=== PATIENT | female | born 1955 | race Caucasian/White ===

== ENCOUNTER 2016-12-21 12:01 | Emergency (ER) | payer OTHER ==
[~2016-12-21 12:01] MED LIST: HYDR-3479 PO; LORA-303 PO; ONDANSETRON8ODT SL/PO; PRE20 PO
--- NOTE | 2016-12-21 12:03 | ED.REPORT ---
HPI-Trauma Minor / Fall Date of Service Dec 21, 2016 ED Provider: History of Present Illness: walking down step at home, tripped over cat. right arm pain. had 5 of morphine with drop in blood pressure in ambulance. lives with . ate around 10 am. LARS is primary care in [place]. normally healthy. 3 steps from outside into home. 2 story house. bedroom on the first floor. took an ativan right before fall. 10/16 left hand dominant injury happened at home inside. Nursing Notes Stated Complaint: arm pain Nursing Notes Reviewed: Yes Allergies: Coded Allergies: No Known Allergies (Unverified Allergy, 07/13/13) Scheduled Lorazepam-Expunged Drug, Do Not Renew! (Lorazepam-Expunged Drug, Do Not Renew!) 1 Mg Tab 1.5 MG PO HS PredniSONE-Expunged Drug, Do Not Renew! (PredniSONE-Expunged Drug, Do Not Renew! ) 20 Mg Tab 40 MG PO DAILY TAKE WITH FOOD Scheduled PRN Hydrocod/APAP-Expunged, Do Not Renew! (VICODIN 5/300-Expunged Drug, Do Not Renew ) 1 Each Tablet 1 TAB PO Q4H PRN PRN For Pain For mild-moderate pain. Ondansetron ODT 8 MGTab (Zofran ODT 8 MG Tab) 8 Mg Tab.rapdis 4 MG SL/PO Q4 PRN PRN For Nausea 8 MG General Time Seen by MD: 12:03 Chief Complaint Fall Hx Obtained From: Patient Onset Occurred: 1 - 4 hours ago Past Medical History Past Medical History Denies: Asthma Past Surgical History shoulder, hernia, crohn's Smoking History Former Smoker (quit in her early 20"s) Social History Alcohol Use: 1-3 per week Drug Use: Denies drug use Occupation lives with work at [employer] in [place] food [employer] 12/21/2016 Ambulatory Status Independent Review of Systems Basic Review of Systems Cardiovascular: No chest pain, No dyspnea on exertion, No orthopnea, No parox noct dyspnea, No palpitations Endocrine: No cold intolerance, No heat intolerance, No weight gain, No weight loss Psychiatric: Normal thought content Physical Exam Initial Vital Signs Vital Signs (First) Date Time Temp Pulse Resp B/P Pulse Ox O2 Delivery O2 Flow Rate FiO2 12/21/16 12:13 36.8 60 18 139/62 100 Room Air Initial VS: Reviewed, Vital signs normal Head / Eyes: Atraumatic, Normocephalic, PERRL ENT: Mucous membranes moist, Conjunctiva normal, No scleral icterus Respiratory: Breath sounds normal, Clear to auscultation, No respiratory distress Cardiovascular: Regular rate & rhythm, Heart sounds normal, Intact distal pulses Abdomen / GI: Soft, Non-tender, No guarding, No rebound, No distention Back: No CVA tenderness Lymphatic: No lymphadenopathy Extremities: Vascular intact, Neuro intact, No swelling, No tenderness Skin: Warm, Dry, No cyanosis Neurologic: Alert, Oriented, Nonfocal Psychiatric: Mood/affect normal, Behavior normal, Normal thought content General/Constitutional: Awake, Alert, No acute distress, Well appearing, Well developed, Well hydrated, Well nourished, Cooperative, Not toxic appearing Neck: Atraumatic, Supple, No meningismus, Full range of motion ENT: Atraumatic, Airway patent, Mucous membranes moist, Pharynx NL Respiratory / Chest: Atraumatic, Breath sounds NL, Breath sounds = bilat, No respiratory distress, No rales, No rhonchi Cardiovascular: Heart rate NL, Regular rhythm, Heart sounds NL right arm held in position of comfort. sensation intact distally in fingers. Movement intact in fingers. cap refill less than 2 sec Interpretation & Diagnostics Lab Results Interpretation Result Diagram: 12/21/16 1543 Test 12/21/16 15:43 White Blood Count 10.4th/mm3 (3.8-10.1) Red Blood Count 4.50mil/mm3 (3.90-5.20) Hemoglobin 13.9g/dL (12.0-15.6) Hematocrit 42.2% (35.0-46.0) Mean Corpuscular Volume 93.8fL (81-100) Mean Corpuscular Hemoglobin 30.9pg (27.0-35.0) Mean Corpuscular Hemoglobin Concent 32.9% (32.0-37.0) Red Cell Distribution Width 13.7% (12.3-15.4) Platelet Count 168bil/L (150-400) Neutrophils (%) (Auto) 83.5% (40-74) Lymphocytes (%) (Auto) 12.6% (14-46) Monocytes (%) (Auto) 3.2% (4-12) Eosinophils (%) (Auto) 0.3% (0-5) Basophils (%) (Auto) 0.2% (0-3) ECG Interpretation ECG Interpretation: sinus rhythm with a rate of 66 Time: 14:18 Interpreted by: ED physician X-Ray Interpretation Xray Interpretation: PROCEDURE: X-RAY RIGHT ELBOW COMPLETE, MINIMUM THREE VIEWS ([id number]) INDICATIONS: fall pain TECHNIQUE: 3 views of the elbow were acquired. COMPARISON: None. FINDINGS: Bones: There is a mildly displaced fracture of what appears to be the lateral humeral condyle. In addition, ill defined lucency is noted along the opposite condyle. However, both condyles are poor evaluated secondary to significant osseous overlap from suboptimal patient positioning. Soft tissues: No elbow joint effusion. No suspicious soft tissue calcifications. IMPRESSION: Mildly displaced humeral condylar fracture, suspected to be lateral. Due to rotation and osseous overlap secondary to patient's inablility for positioning, lateral and medial aspects are poorly delineated. In addition, there is a poorly defined area of second lucency along the adjacent condyle suspicious for fracture but poorly visualized. CT is recommended for additional evaluation. Dictated by: Henna Gaitan M.D. on 12/21/2016 at 13:21 Approved by: Henna Gaitan M.D. on 12/21/2016 at 13:30 PROCEDURE: X-RAY PELVIS W/LAT HIP (RT) ([id number]) INDICATIONS: fell pain TECHNIQUE: AP pelvis with lateral view(s) of the right hip(s). COMPARISON: None. FINDINGS: Bones: No fractures or dislocations. Pelvic ring appears intact. No suspicious bony lesions. Soft tissues: The visualized bowel gas pattern is normal. No suspicious soft tissue calcifications. IMPRESSION: No acute radiographic findings. If pain persists, followup imaging in 5-7 days is recommended to exclude occult fracture. Dictated by: Sarah Stevenson M.D. on 12/21/2016 at 15:53 Approved by: Sarah Stevenson M.D. on 12/21/2016 at 15:54 Re-Eval/Medical Decision Med Decision/Clinical Course 61 year old female fell in her home today after tripping on the family cat landing on her right arm. Patient with tenderness to entire arm. X-ray indicates a distal humerus fracture. Discussed with Dr. Bunch, he suggests patient call Dr. Cabral for follow up later this week. Provided info to patient. No sign of compartment syndrome at this time. Discharge & Departure Impression: Primary Impression: Fracture of distal end of humerus Encounter type: initial encounter Fracture type: closed Fracture alignment : nondisplaced Laterality: right Additional Impression: Hip sprain Disposition: Home Patient Instructions: Arm Fracture in Adults (ED), High Fiber Diet (ED), Splint Care (ED) Additional Instructions: You broke your arm in the fall today. You have been splinted and placed in a sling. Use percocet 10/325 1 every 6 hours as needed for severe unrelenting pain. Continue with ice 15 minutes on and 15 minutes off. Please call Dr. Cabral' s office for follow up. Dr. Bunch is legislative correspondent today and he suggested you call Dr. Cabral and be seen this week. You can purchase a cast protector at any drugstore to keep the cast/splint dry. I am sorry this happened. Your pelvis and hip x- ray is negative for any fracture. You can expect to be stiffer tomorrow. It is going to be important that you continue with gentle movement. Increase fiber in your diet. A list of high fiber foods is provided. Referrals: Gene Cabral DO EDSupervising Provider for APC: Hemant Balderas MD copies to: Gene Cabral Sue ARNP Dec 21, 2016 12:03
[2016-12-21 12:13] VITALS: BP 139/62; PULSE 60; RESP 18; O2SAT 100
[2016-12-21] MEDS ORDERED: fentaNYL-PF 50 mCg/mL 2 mL Inj IVPUSH ONE ×4 (12:20→15:35)
[2016-12-21] MEDS ORDERED: Ondansetron 2 mg/mL 2 mL Inj IVPUSH ONE ×2 (12:20→15:35)
[2016-12-21] MEDS ORDERED: 0.9% Sodium Chloride 1,000 ML IV ONE (12:25)
--- NOTE | 2016-12-21 13:31 | DRSVH ---
PROCEDURE: X-RAY RIGHT ELBOW COMPLETE, MINIMUM THREE VIEWS ([id number]) INDICATIONS: fall pain TECHNIQUE: 3 views of the elbow were acquired. COMPARISON: None. FINDINGS: Bones: There is a mildly displaced fracture of what appears to be the lateral humeral condyle. In add ition, ill defined lucency is noted along the opposite condyle. However, both condyles are poor eval uated secondary to significant osseous overlap from suboptimal patient positioning. Soft tissues: No elbow joint effusion. No suspicious soft tissue calcifications. IMPRESSION: Mildly displaced humeral condylar fracture, suspected to be lateral. Due to rotation an d osseous overlap secondary to patient's inablility for positioning, lateral and medial aspects are p oorly delineated. In addition, there is a poorly defined area of second lucency along the adjacent c ondyle suspicious for fracture but poorly visualized. CT is recommended for additional evaluation. Dictated by: Henna Gaitan M.D. on 12/21/2016 at 13:21 Approved by: Henna Gaitan M.D. on 12/21/2016 at 13:30
[2016-12-21] MEDS ORDERED: oxyCODONE-Acetamin 10-325 mg Tablet PO ONE (13:45)
[2016-12-21 14:00] VITALS: BP 140/59; PULSE 65; O2SAT 100
[2016-12-21 15:46] LABS: BASOPHILS % (AUTO) 0.2 % (0-3); EOSINOPHILS % (AUTO) 0.3 % (0-5); MONOCYTES % (AUTO) 3.2 % (4-12); Mean Corpuscular Hemoglobin 30.9 pg (27.0-35.0); Mean Corpuscular Volume 93.8 fL (81-100); NEUTROPHILS % (AUTO) 83.5 % (40-74); Platelet Count 168 bil/L (150-400)
--- NOTE | 2016-12-21 15:56 | DRSVH ---
PROCEDURE: X-RAY PELVIS W/LAT HIP (RT) ([id number]) INDICATIONS: fell pain TECHNIQUE: AP pelvis with lateral view(s) of the right hip(s). COMPARISON: None. FINDINGS: Bones: No fractures or dislocations. Pelvic ring appears intact. No suspicious bony lesions. Soft tissues: The visualized bowel gas pattern is normal. No suspicious soft tissue calcifications. IMPRESSION: No acute radiographic findings. If pain persists, followup imaging in 5-7 days is recomm ended to exclude occult fracture. Dictated by: Sarah Stevenson M.D. on 12/21/2016 at 15:53 Approved by: Sarah Stevenson M.D. on 12/21/2016 at 15:54
[2016-12-21 16:49] VITALS: BP 140/59; PULSE 65; RESP 18; O2SAT 100
[2016-12-28] MEDS ORDERED: CHOL5000 PO (10:05)
[2016-12-28] MEDS ORDERED: CITA10TA9 PO (10:05)
[2016-12-28] MEDS ORDERED: TURM500C9 PO (10:05)
[2016-12-28] MEDS ORDERED: OXYC1TAB24 PO (10:05)
[2016-12-28] MEDS ORDERED: ONDA-53 PO (10:05)
== END 2016-12-21 16:10 | disposition home or self-care (01) ==
LOC: SED 12:01
DX: S42.494A Other nondisplaced fracture of lower end of right humerus, initial encounter for closed fracture (principal); S73.101A Unspecified sprain of right hip, initial encounter; W10.8XXA Fall (on) (from) other stairs and steps, initial encounter; Y93.01 Activity, walking, marching and hiking; Y92.008 Other place in unspecified non-institutional (private) residence as the place of occurrence of the external cause; Y99.8 Other external cause status; Z87.891 Personal history of nicotine dependence; Z79.52 Long term (current) use of systemic steroids
CPT/HCPCS: 29105; 36415; 73080; 73501; 85025; 93005; 96361; 96374; 96375; 96376; 99285; J2405; J3010; J7030

== ENCOUNTER → 2016-12-30 | Day surgery (SDC) | payer OTHER ==
[2016-12-30] VITALS (13 sets, daily range): BP systolic 98–128; BP diastolic 47–71; PULSE 53–108; RESP 10–18; O2SAT 90–100
[~2016-12-30] VITALS: Ht 160 cm; Wt 62.5 kg
[~2016-12-30] MED LIST changes: +Atropine 0.4 mg/mL Inj IVPUSH PRN; +CHOL5000 PO; +CITA10TA9 PO; +CeFAZolin Inj 2 GM in IV Premix 1 EACH IV ONE; +CeFAZolin Inj 2 gm / 50mL D5W IV ONE; +Dexamethasone 4 mg/mL Inj IVPUSH PRN; +Dexamethasone 4 mg/mL Inj ONE; +EPHEDrine Sulfate 50 mg/mL Inj IVPUSH PRN; +EPHEDrine/NS 5 mg/mL 5 mL Syringe ONE; -HYDR-3479 PO; +HYDROmorphone 0.5 mg/0.5 mL iSecure Syringe ONE; +HYDROmorphone 1 mg/mL Inj ONE; -LORA-303 PO; +Labetalol 5 mg/mL 20 mL Inj IV PRN; +Lactated Ringer's 1,000 ML IV ONE; +Lactated Ringer's 1,000 ML IV SCH; +Lactated Ringer's 500 ML IV PRN; +Lidocaine 1%/Epi 1:100,000 30 mL MDV INFILTRATE ONE; +MetoCLOpramide 5 mg/mL 2 mL Inj IVPUSH PRN; +MetoCLOpramide 5 mg/mL 2 mL Inj ONE; +ONDA-53 PO; -ONDANSETRON8ODT SL/PO; +OXYC1TAB24 PO; +Ondansetron 2 mg/mL 2 mL Inj IVPUSH PRN; +Ondansetron 2 mg/mL 2 mL Inj ONE; -PRE20 PO; +Phenylephrine 10,000 mCg/mL Inj IVPUSH PRN; +Phenylephrine/NS 100 mCg/mL 10 mL Syringe IVPUSH ONE; +Propofol 10,000 mCg/mL 20 mL Inj ONE; +Rocuronium 10 mg/mL 5 mL Inj ONE; +TURM500C9 PO; +fentaNYL-PF 50 mCg/mL 2 mL Inj IVPUSH PRN; +fentaNYL-PF 50 mCg/mL 2 mL Inj ONE; +hydrALAZINE 20 mg/mL Inj IVPUSH PRN; +oxyCODONE-Acetamin 5-325 mg Tablet PO PRN
--- NOTE | 2016-12-30 10:39 | PCM.HPANE ---
Patient Data Date of Service: Dec 30, 2016 Surgeon Admitting Provider: Attending Provider:Gene Cabral DO Primary Care Physician:Chrissy Other Provider:Pippa Prasad Anesthesia Reason for Visit Right Distal Humerus Fracture Ht/WT & BMI Height (Feet): 5 Height (Inches): 3.00 Weight (Kilograms): 62.5 Body Mass Index 24.00 Allergies Coded Allergies: No Known Allergies (Unverified Allergy, Unknown, 12/28/16) Past Anesthesia History Anesthesia History: Denies:: Abnormal Airway, Anesthesia Reactions, Difficult Intubation, Fam Anesthesia Reaction, Fam Malignant Hypertherm, Malignant Hyperthermia Diabetes History Hx Diabetes?: No MRSA MRSA: No Medications Hypertension Medication: No Home Meds Incl Beta Carol: No Reported Medications Cholecalciferol (Vitamin D3) (Vitamin D3)5,000 Unit Capsule5,000 Unit PO DAILY 12/28/16 Turmeric Root Extract (Turmeric)500 Mg [id number] Mg PO DAILY 12/28/16 oxyCODONE-Acetaminophen 5-325 mg 1 Each Tablet1 Tab PO Q6H PRN For Pain Ref 0 12/28/16 Ondansetron 4 Mg Tablet4-8 Mg PO BID PRN For Nausea 12/28/16 Citalopram 10 Mg Tablet5 Mg PO DAILY Ref 0 12/28/16 Discontinued Reported Medications Lorazepam-Expunged Drug, Do Not Renew! 1 Mg Tab1.5 Mg PO HS 07/15/13 Discontinued Scripts Ondansetron ODT 8 MGTab (Zofran ODT 8 MG Tab)8 Mg Tab.rapdis4 Mg SL/PO Q4 PRN For Nausea #20 TAB Ref 0 8 MG Prov:Rabia Montoya MD 07/15/13 Hydrocod/APAP-Expunged, Do Not Renew! (VICODIN 5/300-Expunged Drug, Do Not Renew )1 Each Tablet1 Tab PO Q4H PRN For Pain #30 TAB For mild-moderate pain. Prov:Rabia Montoya MD 07/15/13 PredniSONE-Expunged Drug, Do Not Renew! 20 Mg Tab40 Mg PO DAILY #40 TAB TAKE WITH FOOD Prov:Rabia Montoya MD 07/15/13 History History of ENT Problems?: No HEENT History: Denies:: Abnormal Airway Cataracts Difficult Intubation Dysphagia Glaucoma Hearing Problem Sinus Problem TMJ Denture Type: None Teeth Condition: Within Normal Limits Hx of Heart Problems?: No Cardiovascular History: Denies:: AICD Abdominal Aortic Aneurism Atrial Fibrillation Chest Pain Congestive Heart Failure Coronary Artery Disease Edema Heart Murmur Hypertension Irregular Heartbeat Pacemaker Peripheral Vascular Rheumatic Fever Hx of Respiratory Problem?: No Respiratory History: Denies:: Asthma COPD Emphysema Oxygen Administration Pneumonia (remote hx of- approx 7 years) Tuberculosis Use of C-PAP Machine Use of Inhalers / NEBS Hx Neurologic Problems?: No Neurological History: Denies:: CVA Headaches Multiple Sclerosis Parkinson's Disease Seizures TIA Hx of GI Problems?: Yes Other GI Pertinent History: hx of crohns- has not had flare up since 1995 Hx of Problems?: No Genitourinary History: Denies:: Kidney Stones Urinary Tract Infection Female Hx: Denies:: Currently (hx of tubal ) Endometriosis Pelvic Inflammatory Problems with Breasts? Skin History: Positive for:: History Skin Disorders? ("rashes" around splint) Denies:: Pressure Ulcers Hx Musculoskeletal Problems?: Yes Musculoskeletal History: Positive for:: Musculoskeletal Trauma (fracture right arm current admission problem) Denies:: Back Injury Fibromyalgia Joint Replacement Myasthenia Gravis Osteoarthritis Rheumatoid Arthritis Systemic Lupus Hx of Psycho/Social Problems?: Yes Psycho Social History: Positive for:: Hx Depression Denies:: Anxiety Hx Surgeries?: Yes (hernia, tubal ) Hx Any Other Health Problems?: Yes Other History: Positive for:: Cancer (melanoma right leg, bcc facial) Hospitalization Thyroid Disease (growth on thyroid- being monitored - benign) History Blood Transfusions: Positive for:: Accept Blood Products? Denies:: Blood Transfusions Hx Diabetes: No Hx Alcohol Use: YesAlcoholic Drinks Per Day: 3-4 drinks weeklyHx Substance Use : No Smoking Status: Former Smoker Have You Smoked inLast 12 mo: No Stop/Bang Treated for Sleep Apnea?: No Do You Have a CPAP Machine?: No P-Blood Pressure: treated: No B- Body Mass Index > 35 kg/m2: No A- Age over 50: Yes N- Neck Large Circumference: No G- Gender Male: No CAROL Risk Assessment: Low Risk, <3 Yes Risk Assessment Category Category 1A: Patient has history of documented sleep apnea, and HAS NOT received any narcotic, sedative or anesthesia administration during this stay. Category 1B: Patient has history of documented sleep apnea, and HAS received any narcotic , sedative or anesthesia administration during this stay Category 2: Patient has SUSPECTED Obstructive Sleep Apnea, and HAS received any narcotic , sedative or anesthesia administration during this stay. Category 3: Patient has SUSPECTED Obstructive Sleep Apnea and HAS NOT received narcotic, sedative or anesthesia administration during this stay. Category 4: Outpatient in Procedural Areas with known sleep apnea or who screen positive for High Risk via the STOP/BANG questionnaire. Exam Exam Vital Signs Vital Signs Date Time Temp Pulse Resp B/P Pulse Ox O2 Delivery O2 Flow Rate FiO2 12/30/16 09:11 37.2 53 16 128/71 100 Room Air General Appearance: Alert, Oriented X3, Cooperative HEENT/AIRWAY: MP 1, Neck Movement (Full), Mouth Opening (Wide) Lungs: Clear to Auscultation, Normal Air Movement Heart: Regular Rate/Rhythm, Normal S1, Normal S2 Meds/Labs/Diagnostics Admission Meds Current Medications Lactated Ringer's (Lr) 1,000 ml @ 80 mls/hr [id number] ONCE IV Last administered on 12/30/16 09:32; Start 12/30/16 at 06:00; Stop 12/30/16 at 18:29 Plan Impression Patient chart reviewed, patient interviewed and anesthestic plan with risks, benefits, and alternatives discussed, and informed consent obtained. ASA Physical Status: ASA2 Mod Systemic Disease Anesthetic Plan: GA Bene/Risks/Altern/Consents: Yes HP Complete Prior to Induction: Yes Jai White MD Dec 30, 2016 09:45
[2016-12-30] MEDS: HYDROmorphone 1 mg/mL Inj IVPUSH PRN ×3 (15:09→15:33)
--- NOTE | 2016-12-30 16:02 | PCM.ANEP1 ---
Post Anesthesia PACU Phase 1 Assessment Date of Service: Dec 30, 2016 Vital Signs Vital Signs Date Time Temp Pulse Resp B/P Pulse Ox O2 Delivery O2 Flow Rate FiO2 12/30/16 15:50 71 10 119/48 97 Nasal Cannula 2 12/30/16 15:45 69 13 103/50 100 Nasal Cannula 2 12/30/16 15:35 78 12 99/54 90 Room Air 12/30/16 15:25 36.7 83 14 101/47 96 Room Air 12/30/16 15:15 96 14 99/48 94 Room Air 12/30/16 15:10 96 15 103/53 96 Room Air 12/30/16 15:05 98 15 98/55 96 Room Air 12/30/16 15:00 107 16 102/59 96 Room Air 12/30/16 14:55 36.8 108 18 112/65 100 Simple Mask 8 12/30/16 09:11 37.2 53 16 128/71 100 Room Air Anesthetic Administered: GA Level of Alertness: Awake, talking PAYTON's with Equal Strength: Yes Pain: No Nausea or Vomiting: No CV Function & Hydration Stable: Yes Airway Device: Oxygen Delivery: Room Air Lungs: Normal Air Movement Dermatome Level: Full Sensation PACU Phase 2 Assessment Complications: No Follow up Care: N/A Patient Instructions Provided: N/A Jai White MD Dec 30, 2016 16:02
--- NOTE | 2016-12-31 12:07 | OP ---
[address] [address] OPERATIVE REPORT PATIENT: DUSTY POE : 1955 MR#: [id number] ADMIT: 12/30/2016 JOB ID: [id number] DATE OF SURGERY: 12/31/2016 PREOPERATIVE DIAGNOSIS(ES): Right intra-articular distal humerus fracture. POSTOPERATIVE DIAGNOSIS(ES): Right intra-articular distal humerus fracture. PROCEDURE: Open reduction, internal fixation of right comminuted intra-articular distal humeral fracture. SURGEON: Gene Cabral D.O. HEALTH AND SAFETY COORDINATOR: Nicholas Farrar PA-C The assistance of Nicholas Farrar PA-C was necessary for help with reduction during the procedure as well as for retraction and primary closure at the conclusion of the case. ANESTHESIA: General. BRIEF HISTORY: The patient is a pleasant 61-year-old left-hand dominant female that presented to me several days out after falling directly onto her right elbow. She got her feet caught up between her new kitten and she fell. She immediately had pain and swelling to the elbow, presented to the hospital where she was diagnosed with a distal humerus fracture. She was placed into a splint and followed up in my office for further evaluation and treatment. Upon presentation, the radiographs did demonstrate a distal humerus fracture that was in somewhat of a flexed position. The articular surface did demonstrate that it was intact, but a CT was ordered for further evaluation for preop planning. I discussed with the patient the risks, benefits, alternatives and indications to proceed with open reduction, internal fixation of the right distal humerus fracture. She understood the risks include, but not limited to, neurovascular injury, tendon injury, infection, failure of fixation, stiffness, persistent pain, all of which may require further intervention. The patient had all questions answered. Consent was signed and placed in the chart. In the preoperative suite, I did discuss with the patient and her the possibility of an olecranon osteotomy may need to be performed as further evaluation of the CT did demonstrate although a simple fracture line to the joint, there was also a comminuted segment of the capitellum. They wer ein agreement with the plan and agreed to proceed as planned. PROCEDURE IN DETAIL: The patient was brought to the operative suite and placed supine on the operative table. A surgical time-out was performed. Everyone in the room was in agreement. After appropriate anesthesia was obtained, the patient was placed in the left lateral decubitus position with the body secured with a brown bag. All prominences were well padded. The patient's arm was placed in a forward flexed position on a series of blankets and over a large bump. The right upper extremity was then prepped and draped in a sterile fashion and a sterile tourniquet then applied. The right upper extremity was then exsanguinated and tourniquet inflated to 250 mmHg. A longitudinal incision was made direct posteriorly centered at the fracture site. Large skin flaps were then raised both medially and laterally. The ulnar nerve next was identified medially and decompressed. Dissection was carried down along the medial aspect of the triceps. This was elevated off of the fracture site to expose the medial column. Posterior capsulotomy was also performed for further evaluation of the distal humerus. Dissection was then carried laterally with insertion of a Cervantes from a medial to lateral direction and the lateral column then later exposed for a paratriciptal approach. With a paratricipital approach, the fracture line could easily be identified and manual reduction was performed with slight extension of the fracture site and utilizing various [id number] clamps. Multiple K-wires were then used to hold the various fracture fragment in place. The reduction was verified under fluoroscopy. Next, a Synthes direct medial and direct lateral plate were applied to the medial and lateral column in a parallel plate fashion with the medial plate being approximately two holes longer than the lateral plate. Plates were held provisionally with K-wires and position verified under fluoroscopy. Within the distal pole of both the medial and lateral plates, a nonlocking screw was placed near the articular surface engaging the far cortex. Excellent purchase was achieved with both nonlocking screws, one to each of the medial and lateral plates. A second distal screw was placed to each plate consisting of a locking screw. Finally a suprahilar compression was then achieved placing a nonlocking screw within the oblong hole of both plates. Completion of fixation was performed utilizing a combination of locking and nonlocking screws. Position of the screws and the reduction were verified under fluoroscopy. An after fixation of the columns, dissection was carried out laterally and anteriorly and an anterior capsulotomy performed to expose the capitellar fracture. Capitellar fracture that was a coronal shear was identified. Slight manual reduction needed to be performed followed by application of a K-wire for a planned Synthes headless cannulated screw. Position was verified under fluoroscopy, but unfortunately the first K-wire that was advanced, the tip did break off within the capitellum. The small tip of the wire was well seated within the bone and a decision was made not to go retrieve the K-wire as this would cause more damage to the fracture site itself. A second K-wire was then advanced. Excellent position was verified under fluoroscopy and the head of the cannulated screw then advanced for excellent purchase and compression. Elbow was brought through a full range of motion without any instability or crepitation appreciated. Final radiographs were obtained. Copious irrigation then performed. The capsule anterolaterally was then closed with 0-Vicryl as well as utilization of Vicryl for the extensor interval laterally. The ulnar nerve was left within its [place] position as with elbow range of motion. No subluxation was appreciated. Thus no transposition was necessary. Skin and subcutaneous tissues were closed with 2-0 Vicryl followed by a running Stratafix. This was further reinforced with Steri-Strips. The patient was then placed in a well-padded, well-molded long-arm posterior splint. ESTIMATED BLOOD LOSS: 25 cc. COMPLICATIONS: K-wire tip breakage and application of the headless cannulated screw where the tip was well-seated within the bone and more damage would have been performed trying to go after the tip. This was discussed postoperatively with the patient's and he was in agreement with the explanation. IMPLANTS: Synthes direct medial and direct lateral variable angle periarticular distal humerus plates with a medial plate being longer than the lateral plate, combination of locking and nonlocking screws. Outside of the plate was a single headless cannulated screw. POSTOPERATIVE PLAN: The patient will followup in the office in one week. I will switch her over to a hinged elbow brace at that time and have her start working with therapy for range of motion of the right elbow.
== END | disposition home or self-care (01) ==
LOC: SAS 08:26
PROVIDERS: ATTEND Orthopaedic Surgery
DX: S42.491A Other displaced fracture of lower end of right humerus, initial encounter for closed fracture (principal); W01.0XXA Fall on same level from slipping, tripping and stumbling without subsequent striking against object, initial encounter; Y93.01 Activity, walking, marching and hiking; Z87.891 Personal history of nicotine dependence
CPT/HCPCS: 24586; 76001; C1713; J0690; J1100; J1170; J2250; J2370; J2405; J2704; J2765; J3010; J7120